=== PATIENT | female | born 1980 | race American Indian/Alaskan Native ===

== ENCOUNTER 2017-02-05 19:23 | Emergency (ER) | payer OTHER ==
[2017-02-05 19:36] VITALS: BP 129/82; PULSE 75; RESP 16; TEMP 97.9; O2SAT 100
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
== END 2017-02-05 20:54 | disposition home or self-care (01) ==
LOC: H.ER 19:23
DX: S39.012A Strain of muscle, fascia and tendon of lower back, initial encounter (principal); V43.52XA Car driver injured in collision with other type car in traffic accident, initial encounter; Y92.410 Unspecified street and highway as the place of occurrence of the external cause

== ENCOUNTER 2017-05-13 19:05 | Emergency (ER) | payer SELFPAY ==
[2017-05-13 19:21] VITALS: BP 131/73; PULSE 118; TEMP 97.8; O2SAT 95
[2017-05-13] MEDS ORDERED: Albuterol-Ipratrop 3 mg / 0.5 (3 ml) UD INH STA ×3 (19:38)
[2017-05-13 19:43] VITALS: RESP 17
--- NOTE | 2017-05-13 19:56 | ED PDOC ---
HPI: SOB/CHF/COPD Time Seen by Provider: 05/13/17 19:34 Chief Complaint (Nursing): Shortness Of Breath History Per: Patient History/Exam Limitations: no limitations Onset/Duration Of Symptoms: Days Current Symptoms Are (Timing): Still Present Quality: Dull Additional Complaint(s): No pmhx p/w SOB, wheezing, and chest pain since 05/09, initially thought it was due to allergy from friend's pet but symptoms have persisted. No hx of asthma but strong family hx of asthma. No fevers, chills, states "I don't feel sick". Past Medical History Reviewed: Historical Data, Nursing Documentation, Vital Signs Vital Signs: Last Vital Signs Temp 97.8 F 05/13/17 19:18 Pulse 118 H 05/13/17 19:18 Resp 17 05/13/17 19:35 BP 131/73 05/13/17 19:18 Pulse Ox 95 05/13/17 19:57 - Surgical History Surgical History: (x2) - Family History Family History: States: Unknown Family Hx - Home Medications Home Medications: Ambulatory Orders Medication Instructions Recorded Ibuprofen [Motrin] 600 mg PO Q8 PRN #21 tab 02/05/17 diaZEpam [Valium] 5 mg PO Q6 PRN #3 tab 02/05/17 Albuterol HFA [Ventolin HFA 90 2 puff IH [id number] #1 puff 05/13/17 mcg/actuation (8 g)] predniSONE [predniSONE Tab] 40 mg PO DAILY 3 Days tab 05/13/17 - Allergies Allergies/Adverse Reactions: Allergies Allergy/AdvReac Type Severity Reaction Status Date / Time No Known Allergies Allergy Verified 02/05/17 19:34 Physical Exam - Reviewed Nursing Documentation Reviewed: Yes Vital Signs Reviewed: Yes - Physical Exam Appears: Positive for: Well, Non-toxic, No Acute Distress Head Exam: Positive for: ATRAUMATIC, NORMAL INSPECTION, NORMOCEPHALIC Skin: Positive for: Normal Color, Warm, DRY Eye Exam: Positive for: EOMI, Normal appearance, PERRL ENT: Positive for: Normal ENT Inspection Neck: Positive for: Normal, Painless ROM Cardiovascular/Chest: Positive for: Regular Rate, Rhythm Respiratory: Positive for: Wheezing (bilateral, anteriorly and posteriorly, end expiratory wheeze) Gastrointestinal/Abdominal: Positive for: Normal Exam, Bowel Sounds, Soft Back: Positive for: Normal Inspection Extremity: Positive for: Normal ROM Neurologic/Psych: Positive for: Alert, Oriented - ECG O2 Sat by Pulse Oximetry: 95 Medical Decision Making Medical Decision Making: A/P: No pmhx p/w sob, cp -likely bronchospasm from URI, -will give nebs, steroids -CXR -reassess 930PM Flu neg, CXR shows peribronch thickening, patient no longer wheezing and feeling "much better", given script for albuterol and prednisone, will d/c home. Return precautions discussed, encouraged f/u w/ PMD. Disposition - Clinical Impression Clinical Impression: Bronchospasm - Disposition Referrals: [facility] [place] [Outside] Disposition Time: 21:29 Condition: IMPROVED Prescriptions: Albuterol HFA [Ventolin HFA 90 mcg/actuation (8 g)] 2 puff IH [id number] #1 puff predniSONE [predniSONE Tab] 40 mg PO DAILY 3 Days tab Instructions: Bronchospasm (ED), Wheezing (ED) Forms: [employer] (Dominican)
--- NOTE | 2017-05-14 09:27 | RAD ---
HISTORY: wheezing COMPARISON: No prior. TECHNIQUE: Chest PA and lateral FINDINGS: LUNGS: No active pulmonary disease. PLEURA: No significant pleural effusion identified. No pneumothorax apparent. CARDIOVASCULAR: Normal. OSSEOUS STRUCTURES: No significant abnormalities. VISUALIZED UPPER ABDOMEN: Normal. OTHER FINDINGS: None. IMPRESSION: No acute cardiopulmonary disease appreciated.
--- NOTE | 2017-05-14 09:41 | CARD ---
APPROVED REPORT EKG Measurement Heart [id number] MD [id number] <Conclusion> Sinus tachycardia Biatrial enlargement Nonspecific ST abnormality Abnormal ECG
== END 2017-05-13 21:39 | disposition home or self-care (01) ==
LOC: H.ER 19:05
DX: J98.01 Acute bronchospasm (principal); I51.7 Cardiomegaly